=== PATIENT | male | born 1980 | race Caucasian/White ===

== ENCOUNTER 2017-06-01 10:59 | Emergency (ER) | payer SELFPAY ==
[~2017-06-01] VITALS: Ht 175.3 cm; Wt 79.5 kg
[~2017-06-01 10:59] MED LIST: ZITHROMAX250 MG PO
[2017-06-01] MEDS ORDERED: BACTRIM DS1 TAB PO (11:43)
[2017-06-01] MEDS ORDERED: TRAMADOL HYDROC50 MG PO (11:43)
[2017-06-01 12:17] VITALS: BP 125/59
== END 2017-06-01 12:17 | disposition home or self-care (01) | DRG 603 ==
LOC: ED 10:59
PROC: 0X950ZZ Drainage of Left Axilla, Open Approach (ICD-10-PCS; principal; 2017-06-01)
DX: L02.412 Cutaneous abscess of left axilla (principal); F17.210 Nicotine dependence, cigarettes, uncomplicated

== ENCOUNTER 2018-05-31 16:35 | Emergency (ER) | payer SELFPAY ==
[~2018-05-31] VITALS: Ht 175.3 cm; Wt 81.8 kg
[~2018-05-31 16:35] MED LIST changes: +BACTRIM DS1 TAB PO; +TRAMADOL HYDROC50 MG PO
[2018-05-31] MEDS ORDERED: BACTRIM DS1 TAB PO (17:03)
[2018-05-31] MEDS ORDERED: OMNI-PAC300 MG PO (17:03)
[2018-05-31] MEDS ORDERED: MUPIROCIN21 TOP (17:04)
[2018-05-31 17:06] VITALS: BP 126/75
== END 2018-05-31 17:10 | disposition home or self-care (01) | DRG 603 ==
LOC: ED 16:35
DX: L03.312 Cellulitis of back [any part except buttock and flank] (principal)

== ENCOUNTER 2019-05-29 10:53 | Emergency (ER) | payer OTHER ==
[~2019-05-29] VITALS: Ht 175.3 cm; Wt 72.7 kg
[~2019-05-29 10:53] MED LIST changes: +MUPIROCIN21 TOP; +OMNI-PAC300 MG PO
[2019-05-29 11:39] LABS: HEMATOCRIT 43.1 % (39.0-50.0); HEMOGLOBIN 15.6 g/dl (14.0-18.0); IMMATURE GRANULOCYTES 0.4 % (0.0-5.0); MEAN CELL VOLUME 95.4 fL CALC (80.0-100.0); MEAN CORPUSCULAR HGB 34.5 pG CALC (26.0-32.0); MEAN CORPUSCULAR HGB CONC 36.2 g/L CALC (32.0-36.0); NEUT# 8.03 thou/uL (1.82-7.42); RED BLOOD COUNT 4.52 mill/uL (4.70-6.10); RED CELL DISTRI WIDTH 12.4 % (11.5-15.5)
[2019-05-29 11:52] LABS: ANION GAP 17 (6-22 (CALC)); BUN 26 mg/dL (9-20); BUN/CREATININE RATIO 25 (12-20 (CALC)); CARBON DIOXIDE 25 mmol/l (22-30); CHLORIDE 106 mmol/l (95-108); GFR > 60 ML/MIN (>=60 (CALC)); GFR FOR AFR.AMER. > 60 ML/MIN (>=60 (CALC)); POTASSIUM 4.1 mmol/l (3.5-5.1); SODIUM 143 mmol/l (137-146)
[2019-05-29 12:52] VITALS: BP 118/77
[2019-05-29 13:05] LABS: BARBITURATES NEGATIVE (NEGATIVE); COCAINE NEGATIVE (NEGATIVE); METHADONE NEGATIVE (NEGATIVE); OXCYCODONE NEGATIVE (NEGATIVE); TETRAHYDROCANNABIONOL NEGATIVE (NEGATIVE); TRICYLIC ANTIDEPRESSANTS NEGATIVE (NEGATIVE)
== END 2019-05-29 12:57 | DRG 310 ==
LOC: ED 10:53
PROVIDERS: Family Medicine
DX: R00.0 Tachycardia, unspecified (principal); S49.91XA Unspecified injury of right shoulder and upper arm, initial encounter; F17.210 Nicotine dependence, cigarettes, uncomplicated; F15.90 Other stimulant use, unspecified, uncomplicated; Y35.893A Legal intervention involving other specified means, suspect injured, initial encounter

== ENCOUNTER 2020-05-22 20:48 | Emergency (ER) | payer OTHER ==
[~2020-05-22] VITALS: Ht 175.3 cm; Wt 77.0 kg
[2020-05-22] MEDS ORDERED: VISTARIL25 MG PO (21:36)
[2020-05-22] MEDS ORDERED: SINEQUAN10 MG PO (21:37)
[2020-05-22 21:55] LABS: URINE BILIRUBIN - DIPSTICK NEGATIVE (NEGATIVE); URINE BLOOD DIPSTICK NEGATIVE (NEGATIVE); URINE COLOR YELLOW; URINE GLUCOSE - DIPSTICK NEGATIVE (NEGATIVE); URINE KETONE NEGATIVE (NEGATIVE); URINE LEUK ESTERASE NEGATIVE (NEGATIVE); URINE NITRITE - DIPSTICK NEGATIVE (Negative); URINE PH 6.5 (4.5-8.0); URINE PROTEIN - DIPSTICK NEGATIVE (NEG-TRACE); URINE SPECIFIC GRAVITY 1.015; URINE UROBILINOGEN - DIPSTICK 0.2 E.U./dL (0.2)
[2020-05-22 21:56] LABS: HEMOGLOBIN 14.8 g/dl (14.0-18.0); IMMATURE GRANULOCYTES 0.2 % (0.0-5.0); MEAN CELL VOLUME 92.8 fL CALC (80.0-100.0); MEAN CORPUSCULAR HGB 31.2 pG CALC (26.0-32.0); MEAN CORPUSCULAR HGB CONC 33.6 g/dL CAL (32.0-36.0); NEUT# 3.52 thou/uL (1.82-7.42); RED BLOOD COUNT 4.74 mill/uL (4.70-6.10); RED CELL DISTRI WIDTH 12.5 % (11.5-15.5)
[2020-05-22 22:08] LABS: ALBUMIN 4.5 g/dL (3.2-5.0); ALKALINE PHOSPHATASE 73 u/l (38-126); AMYLASE 72 u/l (30-110); ANION GAP 11 (6-22 (CALC)); BILIRUBIN, TOTAL 0.6 mg/dL (0.0-1.4); BUN 9 mg/dL (9-20); BUN/CREATININE RATIO 10 (12-20 (CALC)); CARBON DIOXIDE 29 mmol/l (22-30); CHLORIDE 104 mmol/l (95-108); CREATININE 0.9 mg/dL (0.7-1.3); GFR > 60 ML/MIN (>=60 (CALC)); GFR FOR AFR.AMER. > 60 ML/MIN (>=60 (CALC)); LIPASE 60 u/l (23-300); POTASSIUM 4.4 mmol/l (3.5-5.1); SGOT/AST 145 u/l (17-59); SODIUM 139 mmol/l (137-146); TOTAL PROTEIN 7.3 g/dL (6.3-8.2)
[2020-05-23 00:02] VITALS: BP 110/70
== END 2020-05-23 00:02 | DRG 392 ==
LOC: ED 20:48
PROVIDERS: Emergency Medicine
DX: R10.9 Unspecified abdominal pain (principal); I10 Essential (primary) hypertension; F17.200 Nicotine dependence, unspecified, uncomplicated; Z20.828 Contact with and (suspected) exposure to other viral communicable diseases
CPT/HCPCS: Q9967

== ENCOUNTER 2022-05-29 12:16 | Emergency (ER) | payer SELFPAY ==
[~2022-05-29] VITALS: Ht 175.3 cm; Wt 81.6 kg
[~2022-05-29 12:16] MED LIST changes: +SINEQUAN10 MG PO; +VISTARIL25 MG PO
[2022-05-29 12:23] VITALS: BP 129/89
[2022-05-29 12:30] VITALS: BP 127/90
[2022-05-29] MEDS ORDERED: PREDNISONE20 MG PO (12:41)
[2022-05-29] MEDS ORDERED: CEPHALEXIN500 M1 PO (12:41)
[2022-05-29 13:11] VITALS: BP 127/90
== END 2022-05-29 13:32 | disposition home or self-care (01) | DRG 607 ==
LOC: ED 12:16
DX: L23.7 Allergic contact dermatitis due to plants, except food (principal); I10 Essential (primary) hypertension; F41.9 Anxiety disorder, unspecified; F17.200 Nicotine dependence, unspecified, uncomplicated

== ENCOUNTER 2022-07-07 02:02 | Emergency (ER) | payer BC ==
[~2022-07-07] VITALS: Ht 175.3 cm; Wt 81.0 kg
[~2022-07-07 02:02] MED LIST changes: +CEPHALEXIN500 M1 PO; +PREDNISONE20 MG PO
[2022-07-07 02:28] VITALS: BP 121/82
[2022-07-07] MEDS ORDERED: STERAPRED DS10 MG PO (02:34)
[2022-07-07] MEDS ORDERED: VISTARIL25 MG PO (02:34)
[2022-07-07 02:37] VITALS: BP 121/82
== END 2022-07-07 02:44 | disposition home or self-care (01) | DRG 607 ==
LOC: ED 02:02
DX: L23.7 Allergic contact dermatitis due to plants, except food (principal); R42 Dizziness and giddiness; F15.90 Other stimulant use, unspecified, uncomplicated; R53.83 Other fatigue; R00.0 Tachycardia, unspecified

== ENCOUNTER 2022-07-07 08:22 | Emergency (ER) | payer BC ==
[~2022-07-07] VITALS: Ht 175.3 cm; Wt 81.8 kg
[2022-07-07] VITALS (8 sets, daily range): BP systolic 122–145; BP diastolic 88–106
[~2022-07-07 08:22] MED LIST changes: +STERAPRED DS10 MG PO
[2022-07-07 08:56] LABS: HEMATOCRIT 45.1 % (39.0-50.0); HEMOGLOBIN 16.2 g/dl (14.0-18.0); IMMATURE GRANULOCYTES 0.1 % (0.0-5.0); MEAN CORPUSCULAR HGB 35.4 pG CALC (26.0-32.0); MEAN CORPUSCULAR HGB CONC 35.9 g/dL CAL (32.0-36.0); NEUT# 6.37 thou/uL (1.82-7.42); RED BLOOD COUNT 4.57 mill/uL (4.70-6.10); RED CELL DISTRI WIDTH 12.2 % (11.5-15.5)
[2022-07-07 09:02] LABS: ALKALINE PHOSPHATASE 87 u/l (38-126); ANION GAP 19 (6-22 (CALC)); CARBON DIOXIDE 24 mmol/l (22-30); CHLORIDE 95 mmol/l (95-108); CREATININE 1.1 mg/dL (0.7-1.3); ETHYL ALCOHOL 0 mg/dl (0-30); GFR FOR AFR.AMER. > 60 ML/MIN (>=60 (CALC)); GFR OTHER RACES > 60 ML/MIN (>=60 (CALC)); POTASSIUM 4.2 mmol/l (3.5-5.1); SGOT/AST 112 u/l (17-59); SODIUM 134 mmol/l (137-146)
[2022-07-07 09:04] LABS: BILIRUBIN, TOTAL 1.3 mg/dL (0.0-1.4); BUN 31 mg/dL (9-20); BUN/CREATININE RATIO 28 (12-20 (CALC)); MEAN CELL VOLUME 98.7 fL CALC (80.0-100.0); TOTAL PROTEIN 8.9 g/dL (6.3-8.2)
[2022-07-07 09:31] LABS: URINE BILIRUBIN - DIPSTICK NEGATIVE (NEGATIVE); URINE BLOOD DIPSTICK NEGATIVE (NEGATIVE); URINE COLOR YELLOW; URINE GLUCOSE - DIPSTICK NEGATIVE (NEGATIVE); URINE KETONE 15 mg/dL (NEGATIVE); URINE LEUK ESTERASE NEGATIVE (NEGATIVE); URINE PROTEIN - DIPSTICK NEGATIVE (NEG-TRACE); URINE SPECIFIC GRAVITY 1.015; URINE UROBILINOGEN - DIPSTICK 0.2 E.U./dL (0.2)
[2022-07-07 09:39] LABS: URINE NITRITE - DIPSTICK NEGATIVE (Negative)
== END 2022-07-07 10:37 | disposition home or self-care (01) | DRG 897 ==
LOC: ED 08:22
PROVIDERS: Family Medicine
DX: F15.90 Other stimulant use, unspecified, uncomplicated (principal); R53.83 Other fatigue; R00.0 Tachycardia, unspecified

== ENCOUNTER 2023-03-20 13:27 | Emergency (ER) | payer BC ==
[~2023-03-20] VITALS: Ht 175.3 cm; Wt 75.0 kg
[2023-03-20 13:36] VITALS: BP 141/94
[2023-03-20] MEDS ORDERED: PREDNISONE50 MG PO ×2 (13:44→14:14)
[2023-03-20 13:45] VITALS: BP 137/89
[2023-03-20] MEDS ORDERED: CEPHALEXIN500 M1 PO ×2 (13:45→13:52)
[2023-03-20 14:02] VITALS: BP 137/89
== END 2023-03-20 14:05 | disposition home or self-care (01) | DRG 607 ==
LOC: ED 13:27
DX: L23.7 Allergic contact dermatitis due to plants, except food (principal); I10 Essential (primary) hypertension; F41.9 Anxiety disorder, unspecified